=== PATIENT | male | born 1955 | race Caucasian/White ===

== ENCOUNTER → 2021-06-21 | Day surgery (SDC) | payer OTHER ==
[~2021-06-21] MED LIST: ATORVASTATIN CA10 MG PO; ECOTRIN81 MG PO; IRBESARTAN75 MG PO; MULTIVITAMINS1 EAC2 PO; REPATHA SY140 MG/1 M SQ; SILDENAFIL20 MG PO; SINEQUAN CAP 1010 MG PO; ZETIA10 MG PO
== END | disposition home or self-care (01) ==
LOC: OR 05:55
DX: Z12.11 Encounter for screening for malignant neoplasm of colon (principal); K57.30 Diverticulosis of large intestine without perforation or abscess without bleeding; I10 Essential (primary) hypertension; E78.5 Hyperlipidemia, unspecified; Z86.010 Personal history of colon polyps; Z79.82 Long term (current) use of aspirin; Z79.899 Other long term (current) drug therapy
CPT/HCPCS: J2704; J7030